=== PATIENT | female | born 1970 | race Caucasian/White ===

== ENCOUNTER 2022-06-29 07:43 | Outpatient (CLI) | payer BC, SELFPAY ==
--- NOTE | 2022-06-29 09:16 | W.ANESCHARGE ---
Anesthesia Charges Start Date/Time Anesthesia Start Date: 06/29/22 Anesthesia Start Time: 08:45 Stop Date/Time Anesthesia Stop Date: 06/29/22 Anesthesia Stop Time: 09:10 Summary Emergency: No
== END 2022-06-29 07:44 | disposition home or self-care (01) ==
LOC: OP CLINIC 07:46
PROVIDERS: PCP Family Medicine; Visit Provider Internal Medicine Gastroenterology
DX: Z12.11 Encounter for screening for malignant neoplasm of colon (principal)
CPT/HCPCS: 00812; 45378; J2704